=== PATIENT | female | born 1975 | race American Indian/Alaskan Native ===

== ENCOUNTER 2018-05-28 06:35 | Day surgery (SDC) | payer MEDICARE ==
[2018-05-28] MEDS ORDERED: TYLENOL PO NR (07:15)
[2018-05-28] MEDS ORDERED: OxyCONTIN PO NR (07:16)
[2018-05-28] MEDS ORDERED: DIPRIVAN 10 MG/ML IV ONE (07:39)
[2018-05-28] MEDS ORDERED: SUBLIMAZE ONE ×2 (07:39→09:41)
[2018-05-28] MEDS ORDERED: ANCEF/STERILE WATER 2 GM/20 ML IV NR (08:00)
[2018-05-28] MEDS ORDERED: NACL 0.9% IR ONE (08:00)
[2018-05-28] MEDS ORDERED: LACTATED RINGERS 1,000 ML IV SCH (08:00)
[2018-05-28] MEDS ORDERED: ZOFRAN IV PRN (09:05)
[2018-05-28] MEDS ORDERED: REGLAN IV PRN (09:05)
[2018-05-28] MEDS ORDERED: DEMEROL IV PRN (09:05)
[2018-05-28] MEDS ORDERED: TORADOL IV PRN (09:05)
[2018-05-28] MEDS ORDERED: DILAUDID IV PRN (09:05)
--- NOTE | 2018-05-28 09:12 | Anesthesia Consultation ---
Anesthesia Consult and Med Hx Date of service: 05/28/18 - Airway Anesthetic Teeth Evaluation: Good ROM Head & Neck: Adequate Mental/Hyoid Distance: Adequate Mallampati Class: Class II Intubation Access Assessment: Probably Good - Pulmonary Exam CTA: Yes - Cardiac Exam Cardiac Exam: RRR - Pre-Operative Health Status ASA Pre-Surgery Classification: ASA3 Proposed Anesthetic Plan: General - Pre-Anesthesia Comment Pre-Anesthesia Comments: LMA ok; administered stress dose steroids because of history of prednisone; given oxy ER and tylenol 1000mg because of history of percocet 10/325 q 4hr prn - Central Nervous System Hx Neuromuscular Disorder: Yes (Erb's Palsy; 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 Hydradenitis Supporative
[2018-05-28] MEDS ORDERED: ZOFRAN ONE (09:13)
[2018-05-28] MEDS ORDERED: ROBINUL ONE (09:13)
[2018-05-28] MEDS ORDERED: XYLOCAINE MPF 2% ONE (09:13)
[2018-05-28] MEDS ORDERED: DILAUDID ONE (09:53)
[2018-05-28] MEDS: DILAUDID IV PRN ×2 (10:15→10:30)
--- NOTE | 2018-05-28 10:41 | Operative Report ---
PREOPERATIVE DIAGNOSES: 1. Open wound, right axilla. 2. Hidradenitis suppurativa, right axilla and left buttock. POSTOPERATIVE DIAGNOSES: 1. Open wound, right axilla. 2. Hidradenitis suppurativa, right axilla and left buttock. PROCEDURE: 1. Tangential excisional of prep of right axilla approximately 75 square cm. 2. Split thickness skin graft to right axilla 75 square cm. 3. Excision of hidradenitis suppurativa of left buttock. SURGEON: Paramjit Stapleton MD DESCRIPTION OF PROCEDURE: The patient was brought to the operating room and placed on the table in supine position. Following administration of general anesthesia, the right axilla, left thigh and left buttock were prepped with Betadine solution, draped in usual sterile manner. A #10 blade scalpel was used to tangentially excise the right axillary wound until healthy bleeding tissue was encountered. Hemostasis was controlled using electrocautery. A Danya Brown dermatome was used to harvest split thickness skin graft from the left thigh, fifteen one thousandth of an inch meshed one half to one, secured in place over the recipient site using regina, covered by Xeroform gauze and a lightly compressive dressing. The donor site was covered by Xeroform gauze covered by a lightly compressive dressing. Attention was then directed to the left buttock where an elliptical incision was made around the abscess of the left buttock. The entire area of infected tissue was resected and sent to pathology as specimen. Hemostasis was controlled using electrocautery and packing was performed with moistened gauze. The patient tolerated the procedure well and returned to recovery room in stable condition. JOB# [id number] FTW/NTS
[2018-05-28] MEDS ORDERED: PERCOCET 5/325 PO PRN (11:00)
[2018-05-28 19:15] VITALS: BP 120/78
--- NOTE | 2018-05-30 11:11 | Post Anesthesia Evaluation ---
- Post Anesthesia Evaluation Patient Participated: Yes Airway Patent: Yes Stable Respiratory Function: Yes Nausea/Vomiting: Yes Temp > 96.8F: No Pain Manageable: Yes Adequeate Hydration: Yes Anesthesia Complications: No
== END 2018-05-28 12:35 | disposition home or self-care (01) ==
LOC: OR 06:35
PROVIDERS: ATTEND Plastic Surgery
DX: S41.101A Unspecified open wound of right upper arm, initial encounter (principal); L73.2 Hidradenitis suppurativa; L02.31 Cutaneous abscess of buttock; F41.9 Anxiety disorder, unspecified; E66.9 Obesity, unspecified; Z68.41 Body mass index [BMI] 40.0-44.9, adult; Z79.899 Other long term (current) drug therapy; X58.XXXA Exposure to other specified factors, initial encounter; Y93.89 Activity, other specified; Y92.89 Other specified places as the place of occurrence of the external cause; Y99.8 Other external cause status
CPT/HCPCS: 11471; 15100; 88305; J0690; J1170; J1720; J1885; J2405; J2704; J3010; J7120